=== PATIENT | female | born 1965 | race American Indian/Alaskan Native ===

== ENCOUNTER 2022-12-06 08:04 | Outpatient (CLI) | payer OTHER, SELFPAY ==
--- NOTE | 2022-12-06 08:21 | CT_ITS ---
WS: [id number] LDCT LUNG CANCER SCREENING HISTORY: NICOTINE DEPENDENCE, CIGARETTES TECHNIQUE: Axial imaging performed from the apices to 1 cm below the costophrenic angles. Coronal and sagittal reformats are submitted with axial MIP series. All CT scans at [facility] use at least one of these dose optimization techniques: automated exposure control; mA and/or kV adjustment per patient size (includes targeted exams where dose is matched to clinical indication); or iterativ e reconstruction. DLP: 81.17 mGy.cm DIvol: Mean CTDIvol: 1.60 (mGy) COMPARISON: None available. Diagnostic quality: Satisfactory Lungs: No pulmonary nodules or endobronchial lesions. Heart: Normal size heart with no pericardial effusion.. Other findings: Minimal calcified plaque in the aortic arch. No aneurysm. Normal size pulmonary arter y. Enlarged lobulated LEFT lobe of the thyroid extends substernal. Thyroid measures at least 3.8 x 3. 9 cm. Slight deviation of the trachea to the RIGHT secondary to the thyroid enlargement. 8mm RIGHT ad renal adenoma. CT/CT lung screening [id number] IMPRESSION: LUNG-RADS: 1S-Negative with Significant Findings FOLLOW UP: 12 Month: Continue annual screening with LDCT OTHER FINDINGS (S MODIFIER): Recommend thyroid ultrasound. LEFT thyroid is enla rged and lobulated and extends substernal.
== END 2022-12-06 08:05 | disposition home or self-care (01) ==
PROVIDERS: PCP Family Medicine; Visit Provider Family Medicine
DX: Z12.2 Encounter for screening for malignant neoplasm of respiratory organs (principal); F17.210 Nicotine dependence, cigarettes, uncomplicated
CPT/HCPCS: 71271

== ENCOUNTER 2023-10-18 10:30 | Outpatient (CLI) | payer OTHER, SELFPAY ==
--- NOTE | 2023-10-18 10:38 | XR_ITS ---
WS: [email or web address] XR knee RT 3V* [id number] REASON FOR EXAM: R KNEE PAIN FINDINGS: No fracture or focal bone lesion. Mild narrowing of the medial knee joint space. There is mild subchondral sclerosis and mild marginal osteophytosis in the medial knee joint compartm ent. Joint spaces of the Lateral knee joint space is intact and relatively well preserved. Mild narrowing of the patellofemoral joint space with mild to moderate subchondral sclerosis and oste ophytosis of the patella. Moderate patellar quadriceps and infrapatellar tendon enthesophytes. IMPRESSION: Mild osteoarthritis of the right knee as above.
== END 2023-10-18 10:31 | disposition home or self-care (01) ==
LOC: RAD 10:33
PROVIDERS: PCP Family Medicine; Visit Provider Family Medicine
DX: M17.11 Unilateral primary osteoarthritis, right knee (principal)
CPT/HCPCS: 73562

== ENCOUNTER 2023-10-25 08:28 | Outpatient (CLI) | payer OTHER, SELFPAY ==
--- NOTE | 2023-10-25 08:40 | MM_ITS ---
WS: [id number] SCREENING DIGITAL TOMOSYNTHESIS MAMMOGRAM WITH CAD HISTORY: SCREENING COMPARISON: None available. Bilateral CC and MLO with tomosynthesis views submitted. Synthetic mammography reviewed. Computer aid ed detection analyzed. Breast composition: There are scattered areas of fibroglandular density. No suspicious masses, microc alcifications or architectural distortion. IMPRESSION: MM/[place] [id number] BI-RADS: 1-Negative FOLLOW UP: 1 Year Follow-up
== END 2023-10-25 08:29 | disposition home or self-care (01) ==
LOC: RAD 08:28
PROVIDERS: PCP Family Medicine; Visit Provider Family Medicine
DX: Z12.31 Encounter for screening mammogram for malignant neoplasm of breast (principal); R92.323 Mammographic fibroglandular density, bilateral breasts
CPT/HCPCS: 77063; 77067

== ENCOUNTER → 2023-11-09 16:19 | Outpatient (BNVA) | payer OTHER, SELFPAY | PROVIDERS: PCP Family Medicine; Visit Provider Orthopaedic Surgery | DX: M48.062 Spinal stenosis, lumbar region with neurogenic claudication (principal); M51.16 Intervertebral disc disorders with radiculopathy, lumbar region | CPT/HCPCS: 72110 ==

== ENCOUNTER → 2023-11-13 08:45 | Outpatient (BNVA) | payer OTHER, SELFPAY | PROVIDERS: PCP Family Medicine; Visit Provider Specialist | DX: M17.11 Unilateral primary osteoarthritis, right knee | CPT/HCPCS: 73560; 73565 ==

== ENCOUNTER 2023-12-11 09:47 | Outpatient (CLI) | payer OTHER, SELFPAY ==
--- NOTE | 2023-12-11 09:50 | CT_ITS ---
WS: [email or web address] LDCT LUNG CANCER SCREENING HISTORY: NICOTINE DEPENDENCE,CIGARETTES TECHNIQUE: Axial imaging performed from the apices to 1 cm below the costophrenic angles. Coronal and sagittal reformats are submitted with axial MIP series. All CT scans at [facility] use at least one of these dose optimization techniques: automated exposure control; mA and/or kV adjustment per patient size (includes targeted exams where dose is matched to clinical indication); or iterativ e reconstruction. DLP: 86.50 mGy.cm DIvol: Mean CTDIvol: 2.00 (mGy) COMPARISON: 12/06/2022 Diagnostic quality: Satisfactory Lungs: Mildly hyperexpanded lungs. No mass or pulmonary nodule. Mild groundglass attenuation medial R IGHT lower lobe. There is additional linear platelike atelectasis at the lingula. Heart: Normal size heart with no pericardial effusion.. Other findings: Mild atherosclerosis aorta. Enlarged LEFT thyroid with a few calcifications. Mild dev iation of the trachea to the RIGHT due to the thyroid enlargement as noted on the prior study. IMPRESSION: CT/CT lung screening [id number] LUNG-RADS: 1-Negative FOLLOW UP: 12 Month: Continue annual screening with LDCT OTHER FINDINGS (S MODIFIER): None. Enlarged LEFT thyroid. Ultrasound was recommended on 12/06/2022.
== END 2023-12-11 09:48 | disposition home or self-care (01) ==
LOC: RAD 09:47
PROVIDERS: PCP Family Medicine; Visit Provider Family Medicine
DX: Z12.2 Encounter for screening for malignant neoplasm of respiratory organs (principal); F17.210 Nicotine dependence, cigarettes, uncomplicated; J98.11 Atelectasis; E04.9 Nontoxic goiter, unspecified
CPT/HCPCS: 71271

== ENCOUNTER 2023-12-14 07:43 | Outpatient (CLI) | payer OTHER, SELFPAY ==
--- NOTE | 2023-12-14 07:56 | US_ITS ---
WS: [email or web address] Thyroid ultrasound, 12/14/2023 Clinical Data: ENLARGED THYROID Comparison: None. Findings: The right lobe of thyroid measures 4.5 cm x 1.8 cm x 2.0 cm. The left lobe measures 6.9 cm x 3.1 cm x 3.5 cm. The isthmus measured 0.3 mm. The echotexture of the thyroid is mixed with numerous cysts and small nodules. No larger nodules are seen.. Impression: Multinodular goiter
--- NOTE | 2023-12-14 09:30 | MR_ITS ---
WS: [id number] MRI RIGHT KNEE NONCONTRAST TECHNIQUE: Axial PD, coronal PD fat sat, coronal PD, sagittal PD, and sagittal PD fat-sat images obta ined. CLINICAL INFORMATION: right knee COMPARISON: None. FINDINGS: Distal quadriceps and patella tendons are intact. Hypertrophic patella. Normal ACL and PCL. Small sup rapatellar effusion. Mild prepatellar soft tissue edema. Normal lateral meniscus. Blunting with chronic appearing tears involving the medial meniscus. Mild pe ripheral extrusion of the medial meniscus. Blunting of the meniscal root. Grade III chondromalacia me dial greater than lateral joint compartments. Small lobulated parameniscal cyst adjacent to the poste rior horn medial meniscus. Medial and lateral collateral ligaments appear intact. Normal popliteus. Normal fibula head. Normal p opliteal fossa. Moderate chondromalacia patella. Medial and lateral patellar retinaculum appear intac t. IMPRESSION: 1. 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 2. Grade III chondromalacia patella. Small suprapatellar effusion. 3. ACL and PCL are intact. 4. Chronic blunting with chronic tears and intrasubstance degeneration involving the medial meniscus with blunting of the meniscal root. Mild peripheral extrusion of the medial meniscus. 5. Small lobulated parameniscal cyst adjacent to the posterior horn medial meniscus measuring 1.9 cm . Outbridge grading: grade III: partial-thickness cartilage loss with focal ulceration
== END 2023-12-14 07:44 | disposition home or self-care (01) ==
LOC: RAD 07:44
PROVIDERS: PCP Family Medicine; Visit Provider Specialist
DX: E04.9 Nontoxic goiter, unspecified (principal); E04.2 Nontoxic multinodular goiter; M17.11 Unilateral primary osteoarthritis, right knee; M22.41 Chondromalacia patellae, right knee; M23.006 Cystic meniscus, unspecified meniscus, right knee
CPT/HCPCS: 73721; 76536

== ENCOUNTER 2024-04-24 07:51 | Outpatient (CLI) | payer OTHER, SELFPAY ==
[2024-04-24 08:37] LABS: Alanine Aminotransferase 117 U/L (0-33); Albumin Level 4.8 g/dL (3.5-5.2); Alkaline Phosphatase 194 U/L (35-105); Anion Gap 14.3 (5-19); Aspartate Amino Transferase 49 U/L (0-32); Blood Urea Nitrogen 15 mg/dL (8-23); Calcium 8.9 mg/dL (8.5-10.5); Carbon Dioxide 28 mmol/L (22-29); Chloride 103 mmol/L (98-107); Chol HDL Ratio 3.76 mg/dL (0.0-4.40); Cholesterol 207 mg/dL (0-200); Globulin 3.5 g/dL (1.3-4.6); Glucose 204 mg/dL (65-115); HDL Cholesterol 55 mg/dL (60-100); LDL Cholesterol Calculated 130 mg/dL (50-129); LDL HDL Ratio 2.36 RATIO (0.00-3.22); Osmolality Calculated 299 mOsm/kg (285-295); Potassium 4.3 mmol/L (3.5-5.1); Sodium 141 mmol/L (136-145); Total Bilirubin 0.5 mg/dL (0.15-1.2); Total Protein 8.3 g/dL (6.6-8.7); Triglycerides 110 mg/dL (0-150)
[2024-04-24 08:38] LABS: Creatinine Urine, Random 121 mg/dL (28-217); Microalbum Creatinine Ratio Ur 25 mg/dL (0-20); Microalbumin Random Urine 3 ug/dL (0-20)
[2024-04-24 08:47] LABS: Estmated Average Glucose 169; Hemoglobin A1C 7.5 % (4.0-6.0)
== END 2024-04-24 07:52 | disposition home or self-care (01) ==
LOC: LAB 07:53
PROVIDERS: PCP Family Medicine; Visit Provider Internal Medicine
DX: E11.9 Type 2 diabetes mellitus without complications (principal); E78.5 Hyperlipidemia, unspecified
CPT/HCPCS: 36415; 80053; 80061; 82044; 83036

== ENCOUNTER 2024-04-25 13:29 | Outpatient (RCR) | payer OTHER, SELFPAY | END 2024-05-25 23:59 | disposition home or self-care (01) | LOC: SPT 13:29 | PROVIDERS: PCP Family Medicine; Visit Provider Family Medicine | DX: M25.511 Pain in right shoulder (principal) | CPT/HCPCS: 97110; 97161 ==

== ENCOUNTER 2024-05-26 06:00 | Outpatient (RCR) | payer OTHER, SELFPAY | END 2024-06-24 23:59 | disposition home or self-care (01) | LOC: SPT 06:00 | PROVIDERS: PCP Family Medicine; Visit Provider Family Medicine | DX: M25.511 Pain in right shoulder (principal) | CPT/HCPCS: 97110 ==

== ENCOUNTER 2024-06-25 06:00 | Outpatient (RCR) | payer OTHER, SELFPAY | END 2024-07-25 23:59 | disposition home or self-care (01) | LOC: SPT 06:00 | PROVIDERS: PCP Family Medicine; Visit Provider Family Medicine | DX: M25.511 Pain in right shoulder (principal) | CPT/HCPCS: 97110 ==

== ENCOUNTER 2024-07-26 06:00 | Outpatient (RCR) | payer OTHER, SELFPAY | END 2024-08-24 23:59 | disposition home or self-care (01) | LOC: SPT 06:00 | PROVIDERS: PCP Family Medicine; Visit Provider Family Medicine | DX: M25.511 Pain in right shoulder (principal) | CPT/HCPCS: 97110 ==

== ENCOUNTER 2024-10-21 06:39 | Outpatient (CLI) | payer OTHER, SELFPAY ==
[2024-10-21 07:45] LABS: Alanine Aminotransferase 177 U/L (0-33); Albumin Level 4.5 g/dL (3.5-5.2); Alkaline Phosphatase 199 U/L (35-105); Aspartate Amino Transferase 73 U/L (0-32); Blood Urea Nitrogen 17 mg/dL (8-23); Calcium 10.2 mg/dL (8.5-10.5); Carbon Dioxide 26 mmol/L (22-29); Chloride 99 mmol/L (98-107); Chol HDL Ratio 4.33 mg/dL (0.0-4.40); Cholesterol 221 mg/dL (0-200); Globulin 3.1 g/dL (1.3-4.6); Glomerular Filtration Rate 85.4 mL/min (90-130); Glucose 324 mg/dL (65-115); HDL Cholesterol 51 mg/dL (60-100); LDL Cholesterol Calculated 145 mg/dL (50-129); LDL HDL Ratio 2.84 RATIO (0.00-3.22); Osmolality Calculated 298 mOsm/kg (285-295); Sodium 137 mmol/L (136-145); Total Bilirubin 0.6 mg/dL (0.15-1.2); Total Protein 7.6 g/dL (6.6-8.7); Triglycerides 125 mg/dL (0-150)
[2024-10-21 08:00] LABS: 25 Hydroxy Vitamin D 31 ng/mL (30-100)
[2024-10-21 08:30] LABS: Creatinine Urine, Random 81 mg/dL (28-217); Microalbumin Random Urine 6 ug/dL (0-20)
[2024-10-21 08:37] LABS: Microalbum Creatinine Ratio Ur 74 mg/dL (0-20)
[2024-10-21 08:42] LABS: Estmated Average Glucose 226; Hemoglobin A1C 9.5 % (4.0-6.0)
== END 2024-10-21 06:40 | disposition home or self-care (01) ==
LOC: LAB 06:44
PROVIDERS: PCP Family Medicine; Visit Provider Internal Medicine
DX: E55.9 Vitamin D deficiency, unspecified (principal); E11.9 Type 2 diabetes mellitus without complications; Z91.014 Allergy to mammalian meats
CPT/HCPCS: 36415; 80053; 80061; 82044; 82306; 83036; 86003; 86008

== ENCOUNTER 2024-11-11 06:47 | Outpatient (CLI) | payer OTHER, SELFPAY ==
[2024-11-11 07:40] LABS: Alanine Aminotransferase 57 U/L (0-33); Albumin Level 4.6 g/dL (3.5-5.2); Alkaline Phosphatase 203 U/L (35-105); Anion Gap 18.7 (5-19); Aspartate Amino Transferase 30 U/L (0-32); Blood Urea Nitrogen 14 mg/dL (8-23); Calcium 10.3 mg/dL (8.5-10.5); Carbon Dioxide 26 mmol/L (22-29); Chloride 99 mmol/L (98-107); Free T4 Free Thyroxine 1.45 ng/dL (0.82-1.77); Glomerular Filtration Rate 73.2 mL/min (90-130); Glucose 251 mg/dL (65-115); Osmolality Calculated 297 mOsm/kg (285-295); Potassium 4.7 mmol/L (3.5-5.1); Sodium 139 mmol/L (136-145); Thyroid Stimulating Hormone 0.94 uIU/mL (0.27-4.20); Total Bilirubin 0.7 mg/dL (0.15-1.2); Total Protein 7.6 g/dL (6.6-8.7)
[2024-11-12 04:44] LABS: C-Peptide 4.58 ng/mL (0.80-3.85)
== END 2024-11-11 06:48 | disposition home or self-care (01) ==
PROVIDERS: PCP Family Medicine; Visit Provider Internal Medicine
DX: E11.9 Type 2 diabetes mellitus without complications (principal); E78.5 Hyperlipidemia, unspecified
CPT/HCPCS: 36415; 80053; 84439; 84443; 84681; 86337; 86341

== ENCOUNTER 2025-01-29 09:30 | Outpatient (CLI) | payer OTHER, SELFPAY | END 2025-01-29 09:31 | disposition home or self-care (01) | LOC: LAB 02-07 06:39 | PROVIDERS: PCP Family Medicine; Visit Provider Internal Medicine | DX: E78.5 Hyperlipidemia, unspecified (principal); E11.9 Type 2 diabetes mellitus without complications; R74.01 Elevation of levels of liver transaminase levels | CPT/HCPCS: 36415; 80053; 80061; 82044; 83036 ==

== ENCOUNTER 2025-04-29 06:59 | Outpatient (CLI) | payer OTHER, SELFPAY ==
[2025-04-29 08:25] LABS: Creatinine Urine, Random 162 mg/dL (28-217); Microalbum Creatinine Ratio Ur 25 mg/dL (0-20)
[2025-04-29 08:29] LABS: Alanine Aminotransferase 59 U/L (0-33); Albumin Level 4.5 g/dL (3.5-5.2); Alkaline Phosphatase 202 U/L (35-105); Anion Gap 16.2 (5-19); Aspartate Amino Transferase 27 U/L (0-32); Blood Urea Nitrogen 10 mg/dL (8-23); Calcium 10.2 mg/dL (8.5-10.5); Carbon Dioxide 29 mmol/L (22-29); Chloride 101 mmol/L (98-107); Cholesterol 181 mg/dL (0-200); Globulin 3.4 g/dL (1.3-4.6); Glucose 216 mg/dL (65-115); HDL Cholesterol 50 mg/dL (60-100); Osmolality Calculated 300 mOsm/kg (285-295); Potassium 4.2 mmol/L (3.5-5.1); Sodium 142 mmol/L (136-145); Total Protein 7.9 g/dL (6.6-8.7); Triglycerides 137 mg/dL (0-150)
[2025-04-29 09:03] LABS: Estmated Average Glucose 206; Hemoglobin A1C 8.8 % (4.0-6.0)
== END 2025-04-29 07:00 | disposition home or self-care (01) ==
PROVIDERS: PCP Family Medicine; Visit Provider Internal Medicine
DX: R74.01 Elevation of levels of liver transaminase levels (principal); E11.9 Type 2 diabetes mellitus without complications; E78.5 Hyperlipidemia, unspecified
CPT/HCPCS: 36415; 80053; 80061; 82044; 83036

== ENCOUNTER 2025-07-23 06:59 | Outpatient (CLI) | payer OTHER, SELFPAY ==
[2025-07-23 08:01] LABS: Alanine Aminotransferase 99 U/L (0-33); Albumin Level 4.8 g/dL (3.5-5.2); Alkaline Phosphatase 268 U/L (35-105); Anion Gap 18.4 (5-19); Aspartate Amino Transferase 59 U/L (0-32); Blood Urea Nitrogen 14 mg/dL (8-23); Calcium 10.0 mg/dL (8.5-10.5); Carbon Dioxide 25 mmol/L (22-29); Chloride 99 mmol/L (98-107); Cholesterol 196 mg/dL (0-200); Globulin 3.3 g/dL (1.3-4.6); Glucose 183 mg/dL (65-115); HDL Cholesterol 40 mg/dL (60-100); Osmolality Calculated 291 mOsm/kg (285-295); Potassium 4.4 mmol/L (3.5-5.1); Sodium 138 mmol/L (136-145); Total Protein 8.1 g/dL (6.6-8.7); Triglycerides 108 mg/dL (0-150)
[2025-07-23 08:02] LABS: Estmated Average Glucose 194; Hemoglobin A1C 8.4 % (4.0-6.0)
[2025-07-23 08:03] LABS: Creatinine Urine, Random 222 mg/dL (28-217)
[2025-07-23 08:12] LABS: Microalbum Creatinine Ratio Ur 41 mg/dL (0-20)
== END 2025-07-23 07:00 | disposition home or self-care (01) ==
PROVIDERS: PCP Family Medicine; Visit Provider Internal Medicine
DX: E11.9 Type 2 diabetes mellitus without complications (principal)
CPT/HCPCS: 36415; 80053; 80061; 82044; 83036